=== PATIENT | female | born 1950 | race Native Hawaiian/Other Pacific Islander ===

== ENCOUNTER → 2018-06-11 | Outpatient (CLI) | payer OTHER ==
[~2018-06-11] MED LIST: PREVACID30 M2 PO; ZESTORETIC 20-1 EAC3 PO
== END ==
LOC: M.ULTRA 10:30
DX: R42 Dizziness and giddiness (principal); R26.81 Unsteadiness on feet; Z87.891 Personal history of nicotine dependence

== ENCOUNTER → 2018-07-28 | Outpatient (CLI) | payer OTHER ==
[2018-07-28 09:04] LABS: CREATININE 0.9 mg/dL (0.6-1.3)
== END ==
LOC: M.LAB 08:32
PROVIDERS: Family Medicine
DX: I65.21 Occlusion and stenosis of right carotid artery (principal)

== ENCOUNTER → 2019-04-27 | Outpatient (CLI) | payer OTHER | LOC: M.RAD 09:04 | DX: Z12.31 Encounter for screening mammogram for malignant neoplasm of breast (principal) ==

== ENCOUNTER → 2020-08-07 | Outpatient (CLI) | payer MEDICARE | LOC: M.RAD 08:28 | PROVIDERS: ATTEND Family Medicine | DX: Z12.31 Encounter for screening mammogram for malignant neoplasm of breast (principal); N64.89 Other specified disorders of breast ==

== ENCOUNTER → 2021-08-12 | Outpatient (CLI) | payer MEDICARE | LOC: M.RAD 09:06 | PROVIDERS: ATTEND Family Medicine | DX: Z12.31 Encounter for screening mammogram for malignant neoplasm of breast (principal) ==

== ENCOUNTER → 2021-09-26 | Outpatient (CLI) | payer MEDICARE | LOC: M.RAD 13:21 | PROVIDERS: ATTEND Family Medicine | DX: M81.0 Age-related osteoporosis without current pathological fracture (principal); Z78.0 Asymptomatic menopausal state ==

== ENCOUNTER → 2021-10-07 | Outpatient (CLI) | payer MEDICARE | LOC: M.CT 09:14 | PROVIDERS: ATTEND Family Medicine | DX: Z12.2 Encounter for screening for malignant neoplasm of respiratory organs (principal); R91.1 Solitary pulmonary nodule; I25.10 Atherosclerotic heart disease of native coronary artery without angina pectoris; F17.200 Nicotine dependence, unspecified, uncomplicated ==

== ENCOUNTER 2021-10-13 12:58 | Emergency (ER) | payer MEDICARE ==
[~2021-10-13] VITALS: Ht 152.4 cm; Wt 49.9 kg
[2021-10-13 13:25] LABS: ABSOLUTE BASOPHILS 0.1 thou/uL (0.0-0.2); ABSOLUTE EOSINOPHILS 0.6 thou/uL (0.0-0.7); ABSOLUTE LYMPHOCYTES 1.9 thou/uL (0.8-5.3); ABSOLUTE MONOCYTES 0.6 thou/uL (0.0-1.2); ABSOLUTE NEUTROPHILS 3.7 thou/uL (1.6-8.1); EOSINOPHILS 9.1 %; HEMATOCRIT 40.9 % (37.0-47.0); HEMOGLOBIN 13.7 gm/dL (12.0-15.0); MCHC 33.6 g/dL (28.0-37.0); MCV 92.2 fL (80.0-100.0); MONOCYTES 9.1 %; MPV 7.9 fl. (7.2-11.1); NUCLEATED RBCS 0 /100WBC; PLATELET COUNT* 265 thou/uL (150-400); POLYS 53.8 %; RBC 4.43 mil/uL (4.20-5.00); RDW-CV 12.8 % (10.5-14.5)
[2021-10-13 13:34] LABS: CALCIUM 8.4 mg/dL (8.5-10.1); POTASSIUM 4.4 mmol/L (3.5-5.1)
[2021-10-13 13:44] LABS: ALBUMIN 4.1 g/dL (3.4-5.0); MAGNESIUM 1.9 mg/dL (1.8-2.4); TOTAL BILIRUBIN 0.3 mg/dL (<0.1-1.0); TOTAL PROTEIN 7.8 g/dL (6.4-8.2)
[2021-10-13 14:14] VITALS: BP 154/80
--- NOTE | 2021-10-13 15:59 | EKG ---
[place] [address] ELECTROCARDIOGRAM REPORT Name: LUCIANO PERSON Room: [facility]#: [id number] Admission: 10/13/21 Attend Phys: Discharge: 10/13/21 Date of : 46 Date of Service: 10/13/21 1319 Report #: [id number] THIS REPORT FOR: //name// [facility] ED Test Date: 2021-10-13 Test Time: 13:19:38 Pat Name: LUCIANO PERSON Department: Room: Gender: Recycling Tech: : 1950 Requested By: Grant Powers Order Number: [id number] MD: Ari Sarkar Measurements Intervals [place] Rate: 83 P: 60 OR: 134 QRS: -31 QRSD: 126 T: 113 QT: 435 QTc: 512 Interpretive Statements Sinus rhythm left axis Probable left atrial enlargement Left bundle branch block Compared to ECG 11/15/2013 09:38:26 Left bundle-branch block now present Electronically Signed On 10-13-2021 15:59:14 MIXING MACHINE ATTENDANT by Ari Sarkar [email or web address] <ELECTRONICALLY SIGNED> By: Ari Sarkar MD, FAC 10/13/21 1559 1319 1319 Ari Sarkar MD, [facility] /EPI
== END 2021-10-13 14:15 | disposition home or self-care (01) ==
LOC: M.ERS 12:58
PROVIDERS: Family Medicine
DX: I10 Essential (primary) hypertension (principal); F17.210 Nicotine dependence, cigarettes, uncomplicated; Z79.899 Other long term (current) drug therapy